=== PATIENT | male | born 1940 | race Caucasian/White ===

== ENCOUNTER 2016-10-31 11:39 | Day surgery (SDC) | payer MEDICARE, OTHER ==
[2016-10-23 16:04] LABS: BASOPHILS 0.6 %; BASOPHILS ABSOLUTE 0.03 10/3/uL (0.0-0.16); EOSINOPHILS 1.9 %; EOSINOPHILS ABSOLUTE 0.09 10/3/uL (0.0-0.53); HEMATOCRIT 35.2 % (40.0-51.0); HEMOGLOBIN 12.3 g/dL (13.6-17.8); LYMPHOCYTES 20.6 %; LYMPHOCYTES ABSOLUTE 0.98 10/3/uL (0.67-4.30); MEAN CORPUS HGB CONC 34.9 g/dL (32.0-36.0); MEAN CORPUSCULAR HEMOGLOB 33.7 pg (26.0-34.0); MEAN CORPUSCULAR VOLUME 96.4 fL (80-100); MEAN PLATELET VOLUME 8.5 fL (9.2-13.0); MONOCYTES 10.7 %; MONOCYTES ABSOLUTE 0.51 10/3/uL (0.21-1.20); NEUTROPHILS 66.2 %; NEUTROPHILS ABSOLUTE 3.14 10/3/uL (2.02-8.40); PLATELET COUNT 199 10/3/uL (150-400); RBC DISTRIBUTION WIDTH 13.5 % (12.0-16.0); RED CELL COUNT 3.65 10/6/uL (4.7-6.1); WHITE BLOOD CELLS 4.8 10/3/uL (4.5-10.5)
[2016-10-23 16:10] LABS: BUN (BLOOD UREA NITROGEN) 15 MG/DL (6-23); CHLORIDE, SERUM 98 MMOL/L (96-112); CO2 (CARBON DIOXIDE) 28 MMOL/L (24-34); CREATININE 0.67 MG/DL (0.70-1.30); GFR AFRICAN AMERICAN 107 ML/MIN (>=60); GFR NON AFRICAN AMERICAN 92 ML/MIN (>=60); GLUCOSE, SERUM 128 MG/DL (60-99); POTASSIUM, SERUM 3.8 MMOL/L (3.5-5.3); SODIUM, SERUM 135 MMOL/L (135-148)
[2016-10-23 16:15] LABS: MANUAL DIFF NO %
--- NOTE | ~2016-10-31 | OP ---
Record Of Operation [facility] [address] [id number] NAME: ESSENCE CHENG : 36 STATUS : [facility]#: [id number] AGE: 76 ADM/REG DATE : 10/31/16 MR#: [id number] REPORT SERV DATE: 10/31/16 DICTATED BY: JEROD KAT III DATE: 10/31/16 REPORT STATUS : Draft TRANSCRIBED BY: MODL DATE: 10/31/16 DATE OF PROCEDURE: 10/31/2016 PROCEDURE: Cystoscopy, fragmentation and removal of bladder stone and right retrograde. PREOPERATIVE DIAGNOSIS: Right ureteral calculus. POSTOP DIAGNOSIS: Right bladder calculus. ANESTHESIA: General. SURGEON: Jerod Kat M.D. INDICATIONS: The patient had an impacted what appeared to be 3-4 mm stone in the distal ureter several weeks ago. DESCRIPTION OF PROCEDURE: He was induced under general anesthesia. The urethra was normal. The prostate was minimally obstructed. The bladder was entered and the stone had moved into the bladder. Right retrograde showed a very tortuous ureter, but no obstruction. I attempted to grasp the stone, however, was too large to come through the scope or the urethra. I then used the laser to break it into 4-5 fragments and removed the fragments. In the process, the prostate bled a small amount, so we left an 18-Greek coude [place]. He tolerated the procedure well. OB/MODL Jerod Kat III, M.D. / [id number] CC: Dennis Loaiza III, M.D.
[~2016-10-31 11:39] MED LIST: 5HTP; ALEVE220 MG PO; ASAB PO; BL CHROMIUM200 MCG OR; CALCIUM CARBONATE; CALTRA600D PO; CHERRY EXTRACT; COD LIVER; COREG3 PO; COREGCR40 PO; DURAFLEX PO; FISH OIL1200 MG PO; FLAXSEED OIL1000 MG PO; FLECAINIDE100 MG PO; FLONASE NAS; GINGER ROOT; HYTRIN10 MG PO; L-ARGININE; ORAZINC110 MG PO; POTASSIUM GLUCO99 MG PO; PRINZIDE1 TAB PO; PROSCAR5 PO; REFENESEN400 MG PO; RESVERATROL PO; SIMETHICONE; TAMBO50 PO; TUMERIC; VITAMINS; ZESTORETIC1 TAB PO; [UNRECOGNIZED DRUG - OTHER]
[2016-11-07 10:41] LABS: STONE COMPOSITION TWO DNR (())
== END 2016-10-31 20:06 | disposition home or self-care (01) ==
LOC: SDC 11:39
PROVIDERS: Urology
PROC: BT1DZZZ Fluoroscopy of Right Kidney, Ureter and Bladder (ICD-10-PCS; 2016-10-31)
PROC: 0TC68ZZ Extirpation of Matter from Right Ureter, Via Natural or Artificial Opening Endoscopic (ICD-10-PCS; principal; 2016-10-31 13:15)
DX: N20.1 Calculus of ureter (principal); N13.8 Other obstructive and reflux uropathy; I10 Essential (primary) hypertension; I48.91 Unspecified atrial fibrillation; I48.92 Unspecified atrial flutter; N40.0 Benign prostatic hyperplasia without lower urinary tract symptoms; K21.9 Gastro-esophageal reflux disease without esophagitis; Z90.49 Acquired absence of other specified parts of digestive tract; Z98.890 Other specified postprocedural states; Z88.1 Allergy status to other antibiotic agents; Z91.040 Latex allergy status; Z79.82 Long term (current) use of aspirin; Z79.51 Long term (current) use of inhaled steroids; Z79.1 Long term (current) use of non-steroidal anti-inflammatories (NSAID); Z79.899 Other long term (current) drug therapy
CPT/HCPCS: 71020; 74420; 80048; 82365; 85025; 93005; C1758; C1769; J2250; J2405; J2710; J3010; Q9967